=== PATIENT | male | born 1945 | race Caucasian/White ===

== ENCOUNTER 2017-10-07 20:24 | Observation (INO) ==
[2017-10-07] MEDS ORDERED: NITROGLYCERIN 2% OINTMENT 1gm PACKET TP ONE (20:40)
[2017-10-07] MEDS ORDERED: NS 1,000 ML IV ONE (20:40)
[2017-10-07] MEDS ORDERED: NITROGLYCERIN 0.4 MG SUBLINGUAL TABLET SL PRN (20:40)
[2017-10-07] MEDS ORDERED: SALINE FLUSH 10ml SYRINGE IVF PRN (20:42)
--- NOTE | 2017-10-07 21:24 | Emergency Department Report ---
Chest Pain HPI - General Chief Complaint: Chest Pain Stated Complaint: cp Time Seen by Provider: 10/07/17 20:32 Source: patient, family Mode of arrival: ambulatory Limitations: no limitations - History of Present Illness HPI narrative: Patient has had several episodes of chest pain over the past several days. Today , one hour ago, while at rest the patient began having chest pain that he describes as an intense discomfort in the center of the chest. Patient took total of 3 nitroglycerin tablets at home with little relief, and so he had his drive him to the ER. By the time he got to the ER pain was significant improved down to a 1-2 out of 10. Patient has a history of coronary disease with MS in the past, and sees Dr. Prajapati in [place]. Patient denies nausea or vomiting, diaphoresis, shortness of breath, headaches or dizziness, or neurologic symptoms. Patient has no radiation of the pain. - Related Data Home Medications Medication Instructions Recorded Confirmed Nitroglycerin 0.4 mg SL Q5MIN3 PRN #0 08/11/08 10/07/17 Simvastatin 20 mg PO HS #0 08/11/08 10/07/17 Lutein 20 mg PO DAILY 06/29/17 10/07/17 Aspirin *EC* [Ecotrin] 81 mg PO DAILY 10/07/17 10/07/17 Dorzolamide Eye Drops [Trusopt] 1 drops OP TID 10/07/17 10/07/17 Hydralazine [Apresoline] 25 mg PO BID 10/07/17 10/07/17 Metoprolol Tartrate 50 mg PO BID 10/07/17 10/07/17 Omeprazole 20 mg PO ACB 10/07/17 10/07/17 Allergies Allergy/AdvReac Type Severity Reaction Status Date / Time codeine Allergy Unknown RASH,SOA,SW Verified 10/07/17 20:54 ELLING ephedrine Allergy Unknown RASH,SOA,SW Verified 10/07/17 20:54 ELLING niacin Allergy Unknown CHEST PAIN Verified 10/07/17 20:54 pseudoephedrine Allergy Unknown Verified 10/07/17 20:54 Review of Systems All systems: reviewed and negative except as stated PFSH Patient Stated Medical History Cerebrovascular Accident No Other HEENT Yes: Wears glasses Angina Yes Cardiac Arrhythmia No Congestive Heart Failure No Coronary Artery Disease Yes Myocardial Infarction Yes Peripheral Vascular Disease No Valvular Heart Disease Yes Diabetes Mellitus Type 1 No Diabetes Mellitus Type 2 Yes Gastroesophageal Reflux Yes Disease Recreational Drug Use No Surgical History: CABG. Mitral valve ring. Cholecystectomy - Social History Smoking status: Former smoker Physical Exam - Limitations Limitations: no limitations - General General appearance: alert - Normal Exams: Head:: Normocephalic without trauma Eyes:: Pupils are PERRLA w/ EOMI, No scleral icterus, irritation, or foreign bodies noted ENMT:: No facial trauma, nasal exudates, pharyngeal erythema, or exudates are noted Neck:: Full range of motion, without adenopathy, JVD, bruits or thyromegaly Chest/Respirations:: Clear all hernandez, with good airflow, and symmetry bilaterally Cardiovascular:: Regular rate and rhythm, without murmur or gallop, Pulses 2+ all extremities, capillary refill, <2 seconds all extremities Abdomen:: Bowel sounds positive, soft, non-tender, non-distended, no hepatosplenomegaly, masses or bruits noted Lymphatic:: No lymphadenopathy, or lymphedema noted Musculoskeletal:: No tenderness, or deformity noted, good range of motion, all extremities Integumentary:: No rashes, hives, or bruising noted, hair and nails, without abnormality Neurological:: Patient is alert, and oriented, cranial nerves, motor/sensory/ cerebellar, exams w/o gross deficits, to observation Psychiatric:: Patient exhibits, appropriate attention, emotion and affect Course Vital Signs Temperature 98.1 F 10/07/17 20:25 Pulse Rate 66 10/07/17 20:25 Respiratory Rate 17 10/07/17 20:25 Blood Pressure 149/69 H 10/07/17 20:25 Pulse Oximetry 97 10/07/17 20:25 Temperature 98.1 F 10/07/17 20:25 Pulse Rate 54 L 10/07/17 21:46 Respiratory Rate 22 10/07/17 21:46 Blood Pressure 125/60 10/07/17 21:46 Pulse Oximetry 96 10/07/17 21:46 Chest Pain - MDM Narrative Medical decision making narrative: EKG shows a normal sinus rhythm with [address] depression in the lateral leads, no reciprocal ST elevation, and all changes appear chronic in comparison to old EKGs. Patient is given 1 inch Nitropaste applied to the chest CBC is normal CMP is normal Troponin is normal but elevated above the patient's baseline at 0.15. Patient is completely pain-free after Nitropaste. Dr. Prajapati, the patient's guest service team leader is not available this weekend, and if the [facility], the patient's preferred hospital is completely close to all but critical care patients. Dr. Spencer is consulted - team is consulted and will admit the patient for chest pain rule out - Lab Data Result diagrams: 10/07/17 20:43 10/07/17 20:43 Lab Results 10/07/17 10/07/17 Range/Units 20:43 20:43 WBC 8.2 (4.5-11.0) T/MM3 RBC 4.34 L (4.50-5.90) M/MM3 Hgb 13.5 (13.5-17.5) GM/DL Hct 39.7 L (41-53) % MCV 91.5 (80-100) UM3 MCH 31.1 (26-34) UUG MCHC 34.0 (31-37) GM/DL RDW Std Deviation 44.0 (36.9-50.2) FL Plt Count 162 (130-400) T/MM3 MPV 11.1 (9.4-12.4) UM3 Immature Gran % (Auto) 0.2 (0.0-0.5) % Neut % (Auto) 51.4 (33-66) % Lymph % (Auto) 30.3 (23-45) % [place] % (Auto) 14.1 H (0-9.0) % Eos % (Auto) 3.0 (0-4) % Baso % (Auto) 1.0 (0-2) % Neut # (Auto) 4.2 (1.8-7.7) T/MM3 Lymph # (Auto) 2.5 (1-4.8) T/MM3 [place] # (Auto) 1.2 H (0-0.8) T/MM3 Eos # (Auto) 0.3 (0-0.5) T/MM3 Baso # (Auto) 0.1 (0-0.2) T/MM3 Abs Immat Gran (auto) 0.02 (0.00-0.03) T/MM3 Turbidity < 20 (0-20) Sodium 137 (134-144) MEQ/L Potassium 3.9 (3.6-5) MEQ/L Chloride 101 (98-107) MEQ/L Carbon Dioxide 26 (22-30) MEQ/L Anion Gap 10 (5-15) MEQ/L BUN 13.0 (9-20) MG/DL Creatinine 0.9 (0.8-1.5) MG/DL GFR Calculation 83 BUN/Creatinine Ratio 14 (6-26) RATIO Glucose 261 H (75-110) MG/DL Calculated Osmolality 273 (261-280) MOSM/KG Calcium 9.3 (8.4-10.2) MG/DL Total Bilirubin 0.40 (0.20-1.30) MG/DL Conjugated Bilirubin 0.00 (0.00-0.30) MG/DL Unconjugated Bilirubin 0.20 (0.00-1.1) MG/DL Icterus Index < 2 (0-7) AST 65 H (17-59) U/L ALT 35 (21-72) U/L Alkaline Phosphatase 78 (38-126) U/L Troponin I 0.015 (0-0.12) ng/ml Total Protein 7.2 (6.3-8.2) G/DL Albumin 4.3 (3.5-5.0) G/DL Globulin 2.9 (2.4-3.6) G/DL Albumin/Globulin Ratio 1.5 (1.1-2.2) RATIO Lipase 158 (23-300) U/L Specimen Hemolysis < 15 (0-25) Disposition Clinical Impression: Chest pain Qualifiers: Chest pain type: unspecified Qualified Code(s): R07.9 - Chest pain, unspecified [place] [facility] [place]proved Prescriptions: No Action Simvastatin 20 mg PO HS #0 Nitroglycerin 0.4 mg SL Q5MIN3 PRN #0 PRN Reason: Chest Pain Lutein 20 mg PO DAILY Metoprolol Tartrate 50 mg PO BID Hydralazine [Apresoline] 25 mg PO BID Dorzolamide Eye Drops [Trusopt] 1 drops OP TID Aspirin *EC* [Ecotrin] 81 mg PO DAILY Omeprazole 20 mg PO ACB Referrals: Yusuf Rodriguez MD [Family Provider] - - Seen By: physician
[2017-10-07] MEDS ORDERED: ASPIRIN 81 MG CHEWABLE TABLET PO ONE (21:50)
--- NOTE | 2017-10-07 21:57 | XRay Report ---
Indication: substernal chest pain XR chest 1V: Comparison: None Technique: Single portable upright chest Findings: Patient shows heart size within acceptable limits. Previous median sternotomy sutures are in place. Lungs showed no focal parenchymal consolidations, masses or effusions. Patient showed just slight interstitial prominence along the left perihilar region. Impression: 1. Postoperative changes of the heart although, no significant cardiac decompensation suggested. 2. Mild chronic lung changes without significant consolidation or effusion. .
[2017-10-07 22:55] VITALS: TEMP 98; O2SAT 97
[2017-10-07 23:15] VITALS: BMI 26.0
[2017-10-08 07:59] VITALS: BP 119/66; PULSE 67; RESP 18
[2017-10-08] MEDS ORDERED: OMEPRAZOLE 20 MG CAPSULE PO SCH (09:00)
[2017-10-08] MEDS ORDERED: DORZOLAMIDE 2% EYE DROPS 10ml OP SCH (09:00)
[2017-10-08] MEDS ORDERED: --POM--ASPIRIN *EC* 81 MG TABLET PO SCH (09:00)
[2017-10-08] MEDS ORDERED: LUTEIN 20 MG CAPSULE PO SCH (09:00)
[2017-10-08] MEDS ORDERED: --POM--HYDRALAZINE 25 MG TABLET PO SCH (09:00)
--- NOTE | 2017-10-08 10:53 | Cardiology History & Physical ---
History of Present Illness Chief complaint: chest pain HPI: Ok is a 72 year old male patient of Dr. Jorge Alberto Prajapati with a history of [place] , CAD with CABG X5 in 2007 who has had several episodes of chest pain over the past several days. Yesterday, while at rest he began having chest pain that he described as an intense discomfort in the center of the chest. He took total of 3 nitroglycerin tablets at home with little relief, and so he had his drive him to the ED. Upon arrival, pain was significantly improved down to a 1- 2 out of 10. He denied nausea or vomiting, diaphoresis, shortness of breath, headaches or dizziness, or neurologic symptoms. He is examined on the Surgical unit. He states he first noticed the chest pain a few days ago while helping [place] He denies recent illness, fever, chills, cough, sore throat, N/V/D, dysuria. Review of Systems - Constitutional Constitutional: Absent: chills, fever(s) - EENMT Eyes: Absent: change in vision Balance: Absent: vertigo Mouth/Throat: Absent: sore throat - Cardiovascular Cardiovascular: Present: chest pain, heart murmur. Absent: palpitations, syncope, dyspnea on exertion, orthopnea, edema Rhythm: Absent: abnormal rhythm Vascular: Absent: pedal edema - Respiratory Respiratory: Absent: cough, dyspnea - Gastrointestinal Gastrointestinal: Absent: constipation, diarrhea, nausea, vomiting - Genitourinary Genitourinary: Absent: dysuria - Integumentary/Breasts Integumentary: Absent: rash - Neurological Neurological: Absent: dizziness - Endocrine Endocrine: Absent: palpitations PFSH Patient Stated Medical History Cataracts Yes Dental Problems Yes: DENTURES Other HEENT Yes: Wears glasses Angina Yes Coronary Artery Disease Yes Myocardial Infarction Yes Valvular Heart Disease Yes Diabetes Mellitus Type 2 Yes Gastroesophageal Reflux Yes Disease Shingles Yes: HX-HAD THEM A CHILD Surgical History: CABG. Mitral valve ring. Cholecystectomy Family History: Father - CAD - Social History Smoking status: Former smoker Substance use type: does not use Alcohol intake frequency: holidays/special occasions only Housing: house Household members: spouse Current occupational status: retired Current residence: Apartment/Private Home Medications Home Medications Medication Instructions Recorded Confirmed Type Nitroglycerin 0.4 mg SL Q5MIN3 PRN #0 08/11/08 10/07/17 History Simvastatin 20 mg PO HS #0 08/11/08 10/07/17 History Lutein 20 mg PO DAILY 06/29/17 10/07/17 History Aspirin *EC* [Ecotrin] 81 mg PO DAILY 10/07/17 10/07/17 History Dorzolamide Eye Drops [Trusopt] 1 drops OP TID 10/07/17 10/07/17 History Hydralazine [Apresoline] 25 mg PO BID 10/07/17 10/07/17 History Metoprolol Tartrate 50 mg PO BID 10/07/17 10/07/17 History Omeprazole 20 mg PO ACB 10/07/17 10/07/17 History Allergies Allergy/AdvReac Type Severity Reaction Status Date / Time codeine Allergy Unknown RASH,SOA,SW Verified 10/07/17 20:54 ELLING ephedrine Allergy Unknown RASH,SOA,SW Verified 10/07/17 20:54 ELLING niacin Allergy Unknown CHEST PAIN Verified 10/07/17 20:54 pseudoephedrine Allergy Unknown Verified 10/07/17 20:54 Exam Vital signs: Temperature 98.0 F 10/07/17 22:50 Pulse Rate 67 10/08/17 07:56 Respiratory Rate 18 10/08/17 07:56 Blood Pressure 119/66 10/08/17 07:56 Pulse Oximetry 97 10/08/17 07:56 - Constitutional no acute distress, well nourished, cooperative - Routine HEENT Exam Head: Present: normocephalic ENT: Present: mucous membranes moist - Routine Neck Exam Absent: JVD, carotid bruit - Routine Chest/Breast/Axilla Exam Chest wall: Absent: tenderness - Routine Respiratory Exam Present: CTA bilaterally. Absent: rales, wheezes - Routine Cardiovascular Exam Present: RRR, murmur (II/) - Routine Abdominal Exam Present: soft, normoactive bowel sounds - Routine Extremities Exam Present: no edema, pulses intact - Routine Skin Exam Present: intact, dry, warm - Routine Neurological Exam Present: alert, oriented X3 - Routine Psychiatric Exam Present: normal affect, normal thought process Results 10/08/17 09:01 10/08/17 09:01 Cardiac Enzymes 10/08/17 10/08/17 Range/Units 00:32 09:01 Troponin I < 0.012 < 0.012 (0-0.12) ng/ml CBC 10/08/17 Range/Units 09:01 WBC 7.6 (4.5-11.0) T/MM3 RBC 4.29 L (4.50-5.90) M/MM3 Hgb 13.2 L (13.5-17.5) GM/DL Hct 39.1 L (41-53) % Plt Count 169 (130-400) T/MM3 Neut # (Auto) 4.4 (1.8-7.7) T/MM3 Lymph # (Auto) 1.7 (1-4.8) T/MM3 [place] # (Auto) 1.2 H (0-0.8) T/MM3 Eos # (Auto) 0.2 (0-0.5) T/MM3 Baso # (Auto) 0.1 (0-0.2) T/MM3 Comprehensive Metabolic Panel 10/08/17 Range/Units 09:01 Sodium 143 D (134-144) MEQ/L Potassium 4.1 (3.6-5) MEQ/L Chloride 107 (98-107) MEQ/L Carbon Dioxide 27 (22-30) MEQ/L BUN 8.0 L (9-20) MG/DL Creatinine 0.9 (0.8-1.5) MG/DL Glucose 128 H (75-110) MG/DL Calcium 8.9 (8.4-10.2) MG/DL Intake and Output 10/07/17 10/08/17 10/08/17 22:59 06:59 14:59 Intake Total 150 / 150 Balance 150 / 150 Intake: Oral 150 / 150 Other: Weight 171 lb 8.314 oz 166 lb 7.184 oz Patient Weight 10/09/17 06:59 Weight 166 lb 7.184 oz - Imaging and Cardiology Imaging & Cardiology Narrative: Date of Exam: 10/07/17 Ordering Provider: Tawanda Foy MD Type of Exam(s): XR chest 1V Reason for Exam(s): substernal chest pain Indication: substernal chest pain XR chest 1V: Comparison: None Technique: Single portable upright chest Findings: Patient shows heart size within acceptable limits. Previous median sternotomy sutures are in place. Lungs showed no focal parenchymal consolidations, masses or effusions. Patient showed just slight interstitial prominence along the left perihilar region. Impression: 1. Postoperative changes of the heart although, no significant cardiac decompensation suggested. 2. Mild chronic lung changes without significant consolidation or effusion. 10/08/17 11:04 EKG interpretations - EKG EKG results cardiology: sinus rhythm - Blocks, axis, hypertrophy, ST abn Repolarization changes or abnormalities: nonspecific abnormality, ST segment, and/or T wave - [place], pacemaker, normal Myocardial infarction: inferior WA (old age indeterminate), lateral [place] (old age or indeterminate) Hospital Course This is a general summary of the patient's hospital course. For more details refer to the complete medical record. Time spent with patient: 25 - 35 minutes DVT Prophylaxis: SCD's Assessment and Plan - Attestation Attestation Narrative: My DRYING TUMBLER OPERATOR examined the patient independently and discussed with me the findings, together we decided on the patient's plan of care. Recommendation I agree with the above assessment. I am involved in the formulation of the patient's plan of care. 10/10/17 09:13 - Assessment and Plan (1) Precordial pain Status: Acute History of [place], CAD with CABG in 2007. - several episodes of chest pain over the past several days. - while at rest he began having chest pain that he described as an intense discomfort in the center of the chest. - He took total of 3 nitroglycerin tablets at home with little relief. - Relieved with Nitro paste. - EKG SR, sinus arrhythmia, nonspecific ST-T changes, No ST elevation or depression - Serial troponin X3 negative - Instructed to Follow up with Dr. Jorge Alberto Prajapati, and return if further chest pain. (2) Atherosclerosis of coronary artery bypass graft without angina pectoris Problem details: 2007 Status: Chronic (3) H/O mitral valve replacement Status: Chronic (4) Mixed hyperlipidemia Status: Chronic (5) Type 2 diabetes mellitus without complications Status: Chronic
--- NOTE | 2017-10-08 11:24 | Discharge Summary ---
<Fay Sheehan - Last Filed: 10/08/17 11:20> Discharge Information Date of admission: 10/07/17 22:44 Anticipated date of discharge: 10/08/17 Attending Physician: Tj Nobles MD Primary care physician: Yusuf Rodriguez MD - Discharge Diagnosis (1) Precordial pain Status: Acute (2) Atherosclerosis of coronary artery bypass graft without angina pectoris Status: Chronic (3) H/O mitral valve replacement Status: Chronic (4) Mixed hyperlipidemia Status: Chronic (5) Type 2 diabetes mellitus without complications Status: Chronic precordial chest pain, CAD - Laboratory Labs: 10/08/17 09:01 10/08/17 09:01 - Radiology Radiology: Date of Exam: 10/07/17 Ordering Provider: Tawanda Foy MD Type of Exam(s): XR chest 1V Reason for Exam(s): substernal chest pain Indication: substernal chest pain XR chest 1V: Comparison: None Technique: Single portable upright chest Findings: Patient shows heart size within acceptable limits. Previous median sternotomy sutures are in place. Lungs showed no focal parenchymal consolidations, masses or effusions. Patient showed just slight interstitial prominence along the left perihilar region. Impression: 1. Postoperative changes of the heart although, no significant cardiac decompensation suggested. 2. Mild chronic lung changes without significant consolidation or effusion. History of Present Illness HPI: Ok is a 72 year old male patient of Dr. Jorge Alberto Prajapati with a history of [place] , CAD with CABG X5 in 2007 who has had several episodes of chest pain over the past several days. Yesterday, while at rest he began having chest pain that he described as an intense discomfort in the center of the chest. He took total of 3 nitroglycerin tablets at home with little relief, and so he had his drive him to the ED. Upon arrival, pain was significantly improved down to a 1- 2 out of 10. He denied nausea or vomiting, diaphoresis, shortness of breath, headaches or dizziness, or neurologic symptoms. He is examined on the Surgical unit. He states he first noticed the chest pain a few days ago while [place] He denies recent illness, fever, chills, cough, sore throat, N/V/D, dysuria. Hospital Course This is a general summary of the patient's hospital course. For more details refer to the complete medical record. Hospital course: History of [place], CAD with CABG in 2007. - several episodes of chest pain over the past several days. - while at rest he began having chest pain that he described as an intense discomfort in the center of the chest. - He took total of 3 nitroglycerin tablets at home with little relief. - Relieved with Nitro paste. - EKG SR, sinus arrhythmia, nonspecific ST-T changes, No ST elevation or depression - Serial troponin X3 negative - Instructed to Follow up with Dr. Jorge Alberto Prajapati, and return if further chest pain. Time spent with patient: 25 - 35 minutes Exam Vital signs: Temperature 98.0 F 10/07/17 22:50 Pulse Rate 67 10/08/17 07:56 Respiratory Rate 18 10/08/17 07:56 Blood Pressure 119/66 10/08/17 07:56 Pulse Oximetry 97 10/08/17 07:56 - Constitutional no acute distress, well nourished, cooperative - Routine HEENT Exam Head: Present: normocephalic ENT: Present: mucous membranes moist - Routine Neck Exam Absent: JVD, carotid bruit - Routine Chest/Breast/Axilla Exam Chest wall: Absent: tenderness - Routine Respiratory Exam Present: CTA bilaterally. Absent: rales, wheezes - Routine Cardiovascular Exam Present: RRR, murmur (II/) - Routine Abdominal Exam Present: soft, normoactive bowel sounds - Routine Extremities Exam Present: no edema - Routine Skin Exam Present: intact, dry, warm - Routine Neurological Exam Present: alert, oriented X3 - Routine Psychiatric Exam Present: normal affect, normal thought process Results 10/08/17 09:01 10/08/17 09:01 Cardiac Enzymes 10/08/17 10/08/17 Range/Units 00:32 09:01 Troponin I < 0.012 < 0.012 (0-0.12) ng/ml CBC 10/08/17 Range/Units 09:01 WBC 7.6 (4.5-11.0) T/MM3 RBC 4.29 L (4.50-5.90) M/MM3 Hgb 13.2 L (13.5-17.5) GM/DL Hct 39.1 L (41-53) % Plt Count 169 (130-400) T/MM3 Neut # (Auto) 4.4 (1.8-7.7) T/MM3 Lymph # (Auto) 1.7 (1-4.8) T/MM3 [place] # (Auto) 1.2 H (0-0.8) T/MM3 Eos # (Auto) 0.2 (0-0.5) T/MM3 Baso # (Auto) 0.1 (0-0.2) T/MM3 Comprehensive Metabolic Panel 10/08/17 Range/Units 09:01 Sodium 143 D (134-144) MEQ/L Potassium 4.1 (3.6-5) MEQ/L Chloride 107 (98-107) MEQ/L Carbon Dioxide 27 (22-30) MEQ/L BUN 8.0 L (9-20) MG/DL Creatinine 0.9 (0.8-1.5) MG/DL Glucose 128 H (75-110) MG/DL Calcium 8.9 (8.4-10.2) MG/DL Intake and Output 10/07/17 10/08/17 10/08/17 22:59 06:59 14:59 Intake Total 150 / 150 Balance 150 / 150 Intake: Oral 150 / 150 Other: Weight 171 lb 8.314 oz 166 lb 7.184 oz Patient Weight 10/09/17 06:59 Weight 166 lb 7.184 oz - Imaging and Cardiology EKG results: image reviewed - EKG Interpretation EKG: sinus rhythm Discharge Plan - Med Rec/Dispo Referrals/Follow Up: Jorge Alberto Prajapati MD [Physician] - 1 Week Abdoulaye Instructions: Chest Pain (DC) Prescriptions: New Nitroglycerin [Nitrostat] 0.4 mg SL Q5M PRN #25 tab PRN Reason: Chest Pain Continue Simvastatin 20 mg PO HS #0 Nitroglycerin 0.4 mg SL Q5MIN3 PRN #0 PRN Reason: Chest Pain Lutein 20 mg PO DAILY Metoprolol Tartrate 50 mg PO BID Hydralazine [Apresoline] 25 mg PO BID Dorzolamide Eye Drops [Trusopt] 1 drops OP TID Aspirin *EC* [Ecotrin] 81 mg PO DAILY Omeprazole 20 mg PO ACB - Disposition 01 Discharged Home, Self-Care - Dismissal Complete Discharge Instructions are:: Complete <Amirani,Senthil - Last Filed: 10/10/17 09:35> Discharge Information Date of admission: 10/07/17 22:44 Attending Physician: Tj Nobles MD Primary care physician: Yusuf Rodriguez MD - Discharge Diagnosis (1) Precordial pain Status: Acute (2) Atherosclerosis of coronary artery bypass graft without angina pectoris Status: Chronic (3) H/O mitral valve replacement Status: Chronic (4) Mixed hyperlipidemia Status: Chronic (5) Type 2 diabetes mellitus without complications Status: Chronic - Laboratory Labs: 10/08/17 09:01 10/08/17 09:01 Hospital Course This is a general summary of the patient's hospital course. For more details refer to the complete medical record. Exam Vital signs: Temperature 98.0 F 10/07/17 22:50 Pulse Rate 67 10/08/17 07:56 Respiratory Rate 18 10/08/17 07:56 Blood Pressure 119/66 10/08/17 07:56 Pulse Oximetry 97 10/08/17 07:56 Results 10/08/17 09:01 10/08/17 09:01 Attestation Narriative - Attestation Attestation Narrative: Patient was examined independently by my BUTTON SEWING MACHINE OPERATOR, findings were discussed and together we agreed on the plan of care. I am involved in the formulation of the patient's plan of care. 10/10/17 09:33
[2017-10-08] MEDS ORDERED: SIMVASTATIN 20 MG TABLET PO SCH (21:00)
== END 2017-10-08 11:45 | disposition home or self-care (01) ==
LOC: SRG 20:24 → ED 20:24 → SRG 22:50
PROVIDERS: ADMIT Internal Medicine Interventional Cardiology; ATTEND Internal Medicine Interventional Cardiology